=== PATIENT | male | born 1955 | race Caucasian/White ===

== ENCOUNTER → 2018-12-17 | Day surgery (SDC) | payer SELFPAY ==
[2018-12-14 18:18] VITALS: BMI 23.6
[~2018-12-17] MED LIST: BENZOCAINE SPRAY 1 CAN MUCOUS MEM ONE; LACTATED RINGERS 1,000 ML IV ONE; LIDOCAINE 1% INJ 10MG/ML (20 ML MDV) ONE; PROPOFOL 10 MG/ML 20 ML VIAL IV ONE; SODIUM CHLORIDE 0.9% 1,000 ML IV SCH; fentaNYL (PF) 50 MCG/ML 2 ML AMP ONE
[2018-12-17 11:14] VITALS: TEMP 97.1
[2018-12-17 12:58] VITALS: RESP 16
[2018-12-17 14:16] VITALS: BP 88/64; PULSE 57
--- NOTE | 2018-12-17 18:27 | CE ---
CARDIAC ELECTROPHYSIOLOGY REPORT DATE OF SERVICE: 12/17/2018 PERFORMING PHYSICIAN: Juan Allen MD PROCEDURE PERFORMED: Cardioversion. INDICATION: This is a pleasant 63-year-old gentleman who was diagnosed recently with atrial fibrillation and cardiomyopathy. He anticoagulated for at least 6 weeks. COMPLICATIONS: None. LEVEL OF SEDATION: Deep sedation was performed using propofol with WAREHOUSE ATTENDANT in the room. PROCEDURE DESCRIPTION: After transesophageal echocardiogram was performed and left atrial appendage thrombus was ruled out, we did cardioversion of atrial fibrillation to normal sinus mechanism using 200 joules on first attempt. CONCLUSION: Successful cardioversion of atrial fibrillation to normal sinus mechanism using 200 joules on first attempt. MMODL / IJN: [id number] /
--- NOTE | 2018-12-17 18:27 | ECHOT ---
TRANSESOPHAGEAL ECHOCARDIOGRAM DATE OF SERVICE: 12/17/2018 PERFORMING PHYSICIAN: Juan Allen MD, on site nurse. PROCEDURE PERFORMED: Transesophageal echocardiogram. INDICATION: This is a 63-year-old gentleman who was diagnosed recently with atrial fibrillation and cardiomyopathy. He was brought today to undergo cardioversion. The JOSSE is to rule out any cardiac source of any left atrial appendage thrombus. COMPLICATIONS: None. SEDATION: The sedation was performed using propofol with CONTACT LENS CUTTER in the room. PROCEDURE DESCRIPTION: After obtaining informed consent, explaining the procedure, benefits, risks, complications and alternatives, the patient was brought to the transesophageal echocardiogram suite. A pulse oximetry and heart rate monitors were attached to the patient prior to the procedure. The patient's throat was sprayed using lidocaine locally. Following that, the patient was turned into left lateral position. A bite guard was placed and the patient was then sedated with the above doses of Versed and fentanyl in divided doses. Following that, the transesophageal echocardiogram probe was advanced through the bite guard into the mid esophagus where 2-D echocardiogram images as well as color Doppler images of various cardiac structures were obtained. We evaluated the interatrial septum using 2-D echocardiogram, color Doppler, and contrast study. The procedure was completed. There were no complications. FINDINGS: Left ventricle appeared to be dilated. The left ventricular systolic function is severely impaired with EF between 15% and 20% with global hypokinesia. Right ventricle appeared to be of normal size and function. The left atrium appeared to be mildly dilated. The interatrial septum appeared to be intact without any evidence of shunt. The left atrial appendage appeared to be normal without any thrombus. The aortic valve is a trileaflet valve with mild aortic insufficiency. The mitral valve seems to be mildly thickened with evidence of moderate to severe mitral regurgitation. There was mild to moderate tricuspid regurgitation. The pulmonary artery systolic pressure was calculated to be within normal limits. CONCLUSION: 1. Dilated left ventricle with severely impaired function and EF of 20%. 2. Normal right ventricular dimension and systolic function. 3. Mild biatrial enlargement. 4. Normal left atrial appendage without any evidence of thrombus. 5. Intact interatrial septum without any evidence of shunt. 6. Moderate to severe mitral regurgitation with a central jet. 7. Mild to moderate tricuspid regurgitation. 8. Normal pulmonary artery systolic pressure. 9. Normal aortic root dimension. 10.No evidence of pericardial effusion. MMODL / IJN: [id number] /
== END | disposition home or self-care (01) ==
LOC: CATHCVL 10:44 → EDBD 12:00
PROVIDERS: ATTEND Internal Medicine Interventional Cardiology
DX: I48.1 Persistent atrial fibrillation (principal); I42.8 Other cardiomyopathies; Z79.01 Long term (current) use of anticoagulants; Z79.899 Other long term (current) drug therapy
CPT/HCPCS: 93312; 93320; 93005; 93325; 92960; J2001; J3010; J2704